=== PATIENT | female | born 1980 | race Caucasian/White ===

== ENCOUNTER 2016-10-05 00:15 | Emergency (ER) | payer OTHER ==
[2016-10-05 00:21] VITALS: RESP 18
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
[2016-10-05 02:31] VITALS: BP 138/83; PULSE 79; TEMP 98.5
== END 2016-10-05 02:31 | disposition home or self-care (01) ==
LOC: EC 00:15
DX: F41.9 Anxiety disorder, unspecified (principal); F17.200 Nicotine dependence, unspecified, uncomplicated
CPT/HCPCS: 99284

== ENCOUNTER → 2018-08-29 | Outpatient (CLI) | payer OTHER ==
[2018-08-29 17:18] LABS: INR 1.1 (<1.2); Prothrombin Time 11.8 sec (9.0-12.0)
[2018-08-29 17:19] LABS: Basophils # (A) 0.1 k/uL (0-0.2); Basophils % (A) 1 %; Eosinophils # (A) 0.1 k/uL (0-0.7); Eosinophils % (A) 2 %; HCT 41.3 % (34.0-46.0); HGB 14.1 gm/dL (11.4-16.0); Lymphocytes # (A) 2.1 k/uL (1.0-4.8); Lymphocytes % (A) 39 %; MCH 30.9 pg (25.0-35.0); MCHC 34.1 g/dL (31.0-37.0); MCV 90.8 fL (80.0-100.0); Mean Platelet Volume 6.6; Monocytes # (A) 0.3 k/uL (0-1.0); Monocytes % (A) 5 %; Neutrophils # (A) 2.8 k/uL (1.3-7.7); Neutrophils % (A) 51 %; Platelet Count 196 k/uL (150-450); RBC 4.55 m/uL (3.80-5.40); RDW 12.5 % (11.5-15.5); WBC 5.5 k/uL (3.8-10.6)
[2018-08-29 17:33] LABS: Albumin 4.3 g/dL (3.5-5.0); Bilirubin, Delta 0.2 mg/dL (0.0-0.2); Bilirubin,Unconjugated 0.4 mg/dL (0.0-1.1); Total Bilirubin 0.6 mg/dL (0.2-1.3); Total Protein 6.8 g/dL (6.3-8.2)
--- NOTE | 2018-08-30 07:02 | US ---
EXAMINATION TYPE: US liver DATE OF EXAM: 08/29/2018 COMPARISON: NONE CLINICAL HISTORY: B18.2 CHR VIRAL HEP C; renal stones EXAM MEASUREMENTS: Liver Length: 15.6 cm Gallbladder Wall: 0.2 cm CBD: 0.6 cm Right Kidney: 11.8 x 5.8 x 4.7 cm Pancreas: wnl Liver: wnl Gallbladder: wnl Evidence for sonographic Duffy's sign: no CBD: wnl, size is upper limits of normal Right Kidney: hyperechoic and shadowing focus (renal calcification) mid pole = 0.6 x 0.4 x 0.2cm. IMPRESSION: 1. Nonobstructing nephrolithiasis right kidney.
[2018-08-30 13:57] LABS: HCV Quant Log 1.86 (<1.08); HCV Quantitative Result 72 IU/mL (<12)
== END | disposition home or self-care (01) ==
LOC: RADUSWWP 15:34
PROVIDERS: ATTEND Internal Medicine Gastroenterology
DX: N20.0 Calculus of kidney (principal); B18.2 Chronic viral hepatitis C
CPT/HCPCS: 36415; 76705; 80076; 85025; 85610; 87522

== ENCOUNTER → 2018-09-19 | Outpatient (CLI) | payer OTHER ==
--- NOTE | 2018-09-19 11:53 | MM ---
Reason for exam: screening (asymptomatic). Baseline mammogram. History: Family history of breast cancer in maternal aunt at age 44. Physical Findings: Nurse did not find any significant physical abnormalities on exam. MG Screening Mammo w CAD Bilateral CC and MLO view(s) were taken. The breast tissue is heterogeneously dense. This may lower the sensitivity of mammography. No suspicious abnormality. No significant new findings when compared with previous films. These results were verbally communicated with the patient and result sheet given to the patient on 09/19/18. ASSESSMENT: Negative, BI-RAD 1 RECOMMENDATION: Routine screening mammogram of both breasts in 1 year.
== END ==
LOC: RADMAMWWP 10:47
PROVIDERS: ATTEND Family Medicine
DX: Z12.31 Encounter for screening mammogram for malignant neoplasm of breast (principal); Z80.3 Family history of malignant neoplasm of breast
CPT/HCPCS: 77067

== ENCOUNTER → 2018-11-05 | Outpatient (CLI) | payer OTHER ==
--- NOTE | 2018-11-05 22:56 | CT ---
EXAMINATION TYPE: CT abdomen pelvis wo con DATE OF EXAM: 11/05/2018 COMPARISON: Ultrasound 08/29/2018 HISTORY: 38-year-old female right flank pain. History of stones. Hepatitis C. CT DLP: 322.8 mGycm. Automated exposure control for dose reduction was used. TECHNIQUE: Contiguous axial scanning of the abdomen and pelvis without IV contrast. Coronal and sagit polina reconstructions performed. FINDINGS: Heart normal size without pericardial effusion. Lung bases clear without pleural effusion. Liver mildly enlarged at 18.1 cm. Otherwise, noncontrast appearance of the liver, gallbladder, adrena l glands, left kidney, 618, and pancreas show no gross abnormality. There is a punctate 3 mm nonobstructive right renal calculus. No hydronephrosis seen on either side. In the pelvis, there is a 3 mm calcification on the right, axial image 117, equivocal for distal uret eral calculus or phlebolith. Additional phleboliths are present on both sides of the pelvis. A phlebo lith is favored. No dilated small bowel, free fluid, or free air. Prominent ingested debris within the stomach. Scattered prominent mesenteric lymph nodes throughout the abdomen measuring up to 7 mm. Probably reac tive/post inflammatory. Normal appendix. Moderate stool burden. No pericolonic inflammatory change. Bladder is urine distended. Uterus is anteverted. Both ovaries are visualized. No abnormal fluid cyndee ection in the pelvis. Bones: Anterior and superior femoral head neck junction osseous excrescences can be seen in the setti ng of femoral acetabular impingement syndrome. IMPRESSION: 1. Nonobstructive 3 mm right renal calculus. 2. A 3 mm calcification in the right seventh and pelvis is equivocal for distal ureteral calculus ve rsus phlebolith. Clinical correlation recommended. The latter is favored. 3. Bony changes at the hips can be seen in the setting of femoral acetabular impingement syndrome. 4. Mild hepatomegaly (18.1 cm).
== END | disposition home or self-care (01) ==
LOC: RADCTMAIN 14:33
PROVIDERS: ATTEND Family Medicine
DX: N20.0 Calculus of kidney (principal); R16.0 Hepatomegaly, not elsewhere classified
CPT/HCPCS: 74176

== ENCOUNTER → 2018-11-05 | Outpatient (CLI) | payer OTHER ==
[2018-11-05 12:48] LABS: Basophils % (A) 1 %; Eosinophils # (A) 0.1 k/uL (0-0.7); Eosinophils % (A) 1 %; HCT 39.5 % (34.0-46.0); HGB 13.4 gm/dL (11.4-16.0); Lymphocytes # (A) 1.5 k/uL (1.0-4.8); Lymphocytes % (A) 23 %; MCHC 33.9 g/dL (31.0-37.0); MCV 88.6 fL (80.0-100.0); Mean Platelet Volume 6.6; Monocytes # (A) 0.3 k/uL (0-1.0); Monocytes % (A) 5 %; Neutrophils # (A) 4.4 k/uL (1.3-7.7); Neutrophils % (A) 69 %; Platelet Count 261 k/uL (150-450); RBC 4.46 m/uL (3.80-5.40); RDW 12.4 % (11.5-15.5); WBC 6.4 k/uL (3.8-10.6)
[2018-11-05 13:01] LABS: INR 1.1 (<1.2); Prothrombin Time 11.5 sec (9.0-12.0)
[2018-11-05 20:00] LABS: Albumin 4.6 g/dL (3.80-4.90); Albumin/Globulin Ratio 2.71 (1.60-3.17); Bilirubin, Conjugated 0.2 mg/dL (0.20-0.40); Bilirubin,Unconjugated 0.4 mg/dL; Globulin 1.7 g/dL (1.6-3.3); Total Bilirubin 0.6 mg/dL (0.2-1.2); Total Protein 6.3 g/dL (6.2-8.2)
[2018-11-06 14:15] LABS: HCV Quant Log <1.08 (<1.08)
== END | disposition home or self-care (01) ==
LOC: LABWHC1 12:10
PROVIDERS: ATTEND Physician Assistant
DX: B18.2 Chronic viral hepatitis C (principal)
CPT/HCPCS: 36415; 80076; 85025; 85610; 87522

== ENCOUNTER → 2019-05-13 | Outpatient (CLI) | payer OTHER ==
[2019-05-13 19:40] LABS: ALT 15 U/L (8-44); AST 17 U/L (13-35); Albumin/Globulin Ratio 2.59 (1.60-3.17); Alkaline Phosphatase 56 U/L (41-126); Bilirubin, Conjugated <0.20 mg/dL (0.20-0.40); Globulin 1.7 g/dL (1.6-3.3); Total Bilirubin 0.3 mg/dL (0.2-1.2); Total Protein 6.1 g/dL (6.2-8.2)
== END | disposition home or self-care (01) ==
LOC: LABWHC1 11:23
DX: B18.2 Chronic viral hepatitis C (principal)
CPT/HCPCS: 36415; 80076; 87522

== ENCOUNTER → 2020-02-17 | Outpatient (CLI) | payer OTHER ==
--- NOTE | 2020-02-17 09:07 | US ---
EXAMINATION TYPE: US pelvic complete DATE OF EXAM: 02/17/2020 COMPARISON: CT 11/05/18 CLINICAL HISTORY: 39-year-old female r10 ABD AND PELVIC PAIN. Lumps in B/L groin TECHNIQUE: Transabdominal sonographic images of the pelvis were acquired. Date of LMP: 02/05/20 FINDINGS: EXAM MEASUREMENTS: Uterus: 8.5 x 4.0 x 4.8 cm Endometrial Stripe: 0.9 cm Right Ovary: 3.5 x 2.7 x 2.2 cm Left Ovary: 2.5 x 1.5 x 3.1 cm 1. Uterus: wnl 2. Endometrium: Within normal limits 3. Right Ovary: Cyst 1.4 x 1.3 x 1.4 cm 4. Left Ovary: wnl 5. Bilateral Adnexa: wnl 6. Posterior cul-de-sac: wnl Multiple lymph nodes seen in Rt groin, largest measuring 2.0 x 0.3 x 2.3 cm IMPRESSION: 1. A 1.4 cm dominant follicle or functional cyst in the right ovary. No pelvic free fluid. Endometria l stripe measuring 9 mm. 2. A few lymph nodes within the right inguinal region, largest measuring 2.0 cm short axis which is m ildly enlarged. Probably reactive/post inflammatory. This should be followed clinically. If any enlar gement is noted, the area can be rescanned.
--- NOTE | 2020-02-17 09:10 | US ---
EXAMINATION TYPE: US abdomen complete DATE OF EXAM: 02/17/2020 COMPARISON: CT 11/05/18 CLINICAL HISTORY: 39-year-old female R10 Abdominal Pelvic Pain. Lumps in B/L groin TECHNIQUE: Multiple sonographic images of the abdomen are obtained. EXAM MEASUREMENTS: Liver Length: 14.3 cm Gallbladder Wall: 0.3 cm CBD: 0.5 cm Spleen: 10.0 cm Right Kidney: 11.5 x 4.6 x 4.8 cm Left Kidney: 11.2 x 4.9 x 4.5 cm Pancreas: wnl. Liver: wnl Gallbladder: No stones seen; junctional fold noted Evidence for sonographic Duffy's sign: No CBD: wnl Spleen: wnl Kidneys: No hydronephrosis. Upper IVC: wnl Abd Aorta: wnl IMPRESSION: Unremarkable sonographic examination of the abdomen.
== END | disposition home or self-care (01) ==
LOC: RADUSWWP 07:05
PROVIDERS: ATTEND Family Medicine
DX: N83.201 Unspecified ovarian cyst, right side (principal); R59.9 Enlarged lymph nodes, unspecified; R10.2 Pelvic and perineal pain
CPT/HCPCS: 76700; 76856

== ENCOUNTER → 2020-05-27 | Outpatient (CLI) | payer OTHER ==
[2020-05-27 11:09] LABS: Basophils % (A) 1 %; Eosinophils # (A) 0.1 k/uL (0-0.7); Eosinophils % (A) 2 %; HCT 41.9 % (34.0-46.0); HGB 14.6 gm/dL (11.4-16.0); Lymphocytes # (A) 1.1 k/uL (1.0-4.8); Lymphocytes % (A) 25 %; MCH 31.6 pg (25.0-35.0); MCHC 34.9 g/dL (31.0-37.0); MCV 90.5 fL (80.0-100.0); Mean Platelet Volume 6.8; Monocytes # (A) 0.3 k/uL (0-1.0); Monocytes % (A) 7 %; Neutrophils # (A) 2.8 k/uL (1.3-7.7); Neutrophils % (A) 64 %; Platelet Count 252 k/uL (150-450); RBC 4.63 m/uL (3.80-5.40); RDW 11.8 % (11.5-15.5); WBC 4.4 k/uL (3.8-10.6)
[2020-05-27 16:54] LABS: % Iron Saturation 52.22 (12.00-45.00); Albumin 4.7 g/dL (3.80-4.90); Albumin/Globulin Ratio 2.94 (1.60-3.17); Bilirubin, Conjugated 0.2 mg/dL (0.20-0.40); Bilirubin,Unconjugated 0.6 mg/dL; Globulin 1.6 g/dL (1.6-3.3); Total Bilirubin 0.8 mg/dL (0.2-1.2); Total Protein 6.3 g/dL (6.2-8.2)
[2020-05-27 17:02] LABS: Ferritin 117.8 ng/mL (10.0-291.0)
[2020-05-28 16:29] LABS: HCV Qualitative Result Not detected (Not detected); HCV Quant Log <1.08 (<1.08); HCV Quantitative Result <12 IU/mL (<12)
== END | disposition home or self-care (01) ==
LOC: LABWHC1 10:12
PROVIDERS: ATTEND Physician Assistant
DX: B18.2 Chronic viral hepatitis C (principal); R53.83 Other fatigue
CPT/HCPCS: 36415; 80076; 82728; 83540; 83550; 85025; 87522

== ENCOUNTER → 2022-02-22 | Outpatient (CLI) | payer OTHER ==
--- NOTE | 2022-02-22 10:53 | MR ---
EXAMINATION TYPE: MR knee LT wo con DATE OF EXAM: 02/22/2022 COMPARISON: None HISTORY: ACUTE MENISCAL TEAR, LEFT KNEE PAIN TECHNIQUE: Multiplanar, multisequence imaging of the left knee is performed without IV contrast. FINDINGS: Artifact is present on the exam, there is motion. MEDIAL MENISCUS: Posterior horn the medial meniscus is diminished in size, irregular in shape, there may be a fragment flipped laterally, multilocular cystic changes present at this level which may repr esent meniscal cyst. LATERAL MENISCUS: Anterior and posterior horns are intact without tear. CRUCIATE LIGAMENTS: Anterior cruciate ligament fibers are not well-defined. Posterior cruciate ligame nt appears intact. COLLATERAL LIGAMENTS: The medial collateral ligament and lateral collateral ligament complex are inta ct and unremarkable. EXTENSOR MECHANISM: Visualized quadriceps and patellar tendons are intact. EFFUSION: Suprapatellar joint effusion is present extending laterally and medially POPLITEAL CYST: No popliteal/bauman cyst. 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 IMPRESSION: Findings suggest a chronic tear the posterior horn the medial meniscus with flipped fragment laterall y as described, possible anterior cruciate ligament tear, osteoarthritis, joint effusion. There is mo tion on the exam.
== END | disposition home or self-care (01) ==
LOC: RADMRIMAIN 09:07
PROVIDERS: ATTEND Family Medicine
DX: S83.241A Other tear of medial meniscus, current injury, right knee, initial encounter (principal)

== ENCOUNTER 2023-11-29 02:37 | Observation (INO) | payer OTHER ==
[2023-11-29] MEDS ORDERED: VANCOMYCIN IV PER PHARMACY 1 EACH MISC MISCELLANE PRN (03:11)
[2023-11-29] MEDS: VANCOMYCIN 1,250 MG in SODIUM CHLORIDE 0.9% 250 ML IVPB ONE (04:14)
[2023-11-29 04:32] LABS: Basophils % (A) 1 %; Eosinophils % (A) 0 %; HCT 37.8 % (34.0-46.0); HGB 12.9 gm/dL (11.4-16.0); Lymphocytes # (A) 1.3 k/uL (1.0-4.8); Lymphocytes % (A) 21 %; MCH 30.5 pg (25.0-35.0); MCHC 34.2 g/dL (31.0-37.0); MCV 89.3 fL (80.0-100.0); Mean Platelet Volume 7.5; Monocytes # (A) 0.5 k/uL (0-1.0); Monocytes % (A) 8 %; Neutrophils # (A) 4.5 k/uL (1.3-7.7); Neutrophils % (A) 69 %; Platelet Count 147 k/uL (150-450); RBC 4.23 m/uL (3.80-5.40); RDW 12.5 % (11.5-15.5); WBC 6.5 k/uL (3.8-10.6)
[2023-11-29] MEDS ORDERED: NALOXONE 0.4 MG/ML 1 ML VIAL IV PRN (05:59)
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
[2023-11-29 06:14] LABS: African American GFR (CKD) >90 (>60 ml/min/1.73 sqM); Blood Urea Nitrogen 19 mg/dL (7-17); Non-African American GFR(CKD) >90 (>60 ml/min/1.73 sqM)
[2023-11-29] MEDS: SODIUM CHLORIDE 0.9% 1,000 ML IV SCH (06:19)
[2023-11-29] MEDS ORDERED: PIPERACILLIN-TAZOBACTAM 3.375 GM in SODIUM CHLORIDE 0.9% 100 ML IVPB SCH (08:00)
--- NOTE | 2023-11-29 09:30 | P.CNOR ---
History of Present Illness - [facility] Consult date: 11/29/23 History of present illness: This is a pleasant 43-year-old female patient who presented to [facility] department after a vegetable washer injury on 11/28/2023. The patient accidentally pressure washed the volar aspect of the base of the left index finger. They have had pain in their left index finger afterwards. The patient states they are ambidextrous. Past Medical History Past Medical History: No Reported History History of Any Multi-Drug Resistant Organisms: None Reported Past Surgical History: Hernia Repair, Orthopedic Surgery Past Psychological History: No Psychological Hx Reported Past Alcohol Use History: None Reported Past Drug Use History: Methamphetamine Medications and Allergies Home Medications Medication Instructions Recorded Confirmed Type Acetaminophen-Codeine 300-30mg 1 each PO Q6H PRN #20 tablet 05/11/15 Rx [Tylenol #3] Ibuprofen [Motrin] 800 mg PO Q8HR PRN #30 tab 05/11/15 Rx Allergies Allergy/AdvReac Type Severity Reaction Status Date / Time No Known Allergies Allergy Verified 11/29/23 02:55 Physical Examination A focused exam was conducted of the left hand at bed side in the emergency dep artment. On inspection there is an entrance wound on the volar aspect of the base of the left index finger. There is no current bleeding. The left index finger has generalized swelling. Their is no warmth or overlying erythema. Gross sensation is intact to all five digits. Median, radial, ulnar, and anterior interosseous nerve function is grossly intact. Patient has full range of motion of the left wrist, left hand, and left fingers. - Wrist & Hand left Finger catching (Trigger): none Symptoms: none Appearance: normal Tenderness with palpation: none Full ROM: wrist: yes Full ROM: fingers: yes ROM: wrist flexion: normal ROM: wrist extension: normal ROM: wrist radial deviation: normal ROM: wrist ulnar deviation: normal ROM: wrist pronation: normal ROM: wrist supination: normal ROM: thumb MP joint: normal ROM: thumb IP joint: normal ROM: index finger MP joint: normal ROM: index finger PIP joint: normal ROM: index finger DIP joint: normal ROM: long finger MP joint: normal ROM: long finger PIP joint: normal ROM: long finger DIP joint: normal ROM: ring finger MP joint: normal ROM: ring finger PIP joint: normal ROM: ring finger DIP joint: normal ROM: small finger MP joint: normal ROM: small finger PIP joint: normal ROM: small finger DIP joint: normal Strength: wrist flexion: 5/5 Strength: wrist extension: 5/5 Strength: wrist radial deviation: 5/5 Strength: wrist ulnar deviation: 5/5 Strength: wrist pronation: 5/5 Strength: wrist supination: 5/5 Strength: derrick car operator: 5/5 Results - Labs Labs: Abnormal Lab Results - Last 24 Hours (Table) 11/29/23 11/29/23 Range/Units 03:54 03:54 Plt Count 147 L (150-450) k/uL BUN 19 H (7-17) mg/dL H & H 11/29/23 Range/Units 03:54 Hgb 12.9 (11.4-16.0) gm/dL Hct 37.8 (34.0-46.0) % Result Diagrams: 11/29/23 03:54 11/29/23 03:54 Assessment and Plan Assessment: Entrance wound to the volar aspect of the base of the index finger. Plan: Patient was evaluated in the emergency department this morning. No signs of infection at time of exam. Based on the patient's history and physical exam findings, nonoperative conservative management is recommended. We will defer decision for prophylactic antibiotic therapy to internal medicine. Patient can be discharged from an orthopedic standpoint pending medical clearance.
[2023-11-29] MEDS: VANCOMYCIN 1,250 MG in SODIUM CHLORIDE 0.9% 250 ML IVPB SCH (12:40)
[2023-11-29] MEDS ORDERED: IBUPROFEN 600 MG TAB PO PRN (12:42)
[2023-11-29] MEDS: HYDROcodone/APAP 5-325MG 1 EACH TAB PO PRN (12:50)
[2023-11-29] MEDS: AMPICILLIN-SULBACTAM 3 GM in SODIUM CHLORIDE 0.9% 100 ML IVPB SCH (18:03)
--- NOTE | 2023-11-29 20:18 | P.CONS ---
History of Present Illness - Reason for Consult Consult date: 11/29/23 Finger infection Requesting physician: Todd Vyas - Chief Complaint Right index finger pain and swelling x 1 day - History of Present Illness Patient is a 43-year-old female with no significant past medical history presenting to [facility] ER concerning for increasing pain and swelling and some redness to the right index finger apparently the patient was cleaning something with the high-pressure water and having accidentally direct to the proximal to her index finger patient noticed to have significant swelling bleeding with pain patient presented to the hospital patient denies having any fever or any chills has been complaining of pain which is mostly throbbing mild to moderate intense without any additional diffuse swelling minimal redness did have some bleeding but no foul-smelling drainage on presentation the hospital the patient was afebrile patient was nontachycardic hypotensive or hypoxic patient did have a white count of 6.5 creatinine 0.54 patient did not have any x-rays done patient was started on vancomycin and Zosyn concerning for possible infection, infectious was consulted for further management of antibiotic therapy Review of Systems Positive point and negatives has been mentioned in the HPI, complete review of systems was performed and all other systems are negative Past Medical History Past Medical History: No Reported History History of Any Multi-Drug Resistant Organisms: None Reported Past Surgical History: Hernia Repair, Orthopedic Surgery Past Psychological History: No Psychological Hx Reported Past Alcohol Use History: None Reported Past Drug Use History: Methamphetamine Medications and Allergies Home Medications Medication Instructions Recorded Confirmed Type Ibuprofen [Motrin] 600 mg PO Q8HR PRN 11/29/23 11/29/23 History Amoxic-Pot Clav 875-125Mg 1 each PO Q12HR 7 Days #14 tab 11/30/23 Rx [Augmentin 875-125] Allergies Allergy/AdvReac Type Severity Reaction Status Date / Time No Known Allergies Allergy Verified 11/29/23 09:29 Physical Exam Vitals: Vital Signs Temp Pulse Resp BP Pulse Ox 11/29/23 12:45 98 F 81 18 109/68 99 11/29/23 07:25 98.1 F 83 18 102/68 100 11/29/23 02:52 98.6 F 81 18 134/87 99 Intake and Output 11/28/23 11/29/23 11/29/23 22:59 06:59 14:59 Other: Weight 79.379 kg GENERAL DESCRIPTION: Middle-aged female lying in bed, no distress. No tachypnea or accessory muscle of respiration use. HEENT: Shows Pallor , no scleral icterus. Oral mucous membrane is dry. NECK: Trachea central, no thyromegaly. LUNGS: Unlabored breathing. Clear to auscultation anteriorly. No wheeze or crackle. HEART: S1, S2, regular rate and rhythm. No loud murmur ABDOMEN: Soft, no tenderness , guarding or rigidity, no organomegaly EXTREMITIES: Right index fingertip did have some swelling minimal redness was noticed no purulent drainage SKIN: No rash, no masses palpable. NEUROLOGICAL: The patient is awake, alert, oriented x3, mood and affect normal. Results CBC & Chem 7: 11/29/23 03:54 11/29/23 03:54 Labs: Abnormal Lab Results - Last 24 Hours (Table) 11/29/23 11/29/23 Range/Units 03:54 03:54 Plt Count 147 L (150-450) k/uL BUN 19 H (7-17) mg/dL Assessment and Plan (1) Finger infection Status: Acute Code(s): L08.9 - LOCAL INFECTION OF THE SKIN AND SUBCUTANEOUS TISSUE, UNSP SNOMED Code(s): 211205689 Plan: 1patient presented to hospital with high pressure water injury to the right index finger with some redness and concern for possible cellulitis likely from gram-positive skin hermelindo 2-discontinue vancomycin and Zosyn to decrease risk of nephrotoxicity 3-we will start the patient on Unasyn and see clinical response We will follow on clinical condition and cultures to further adjust medication if needed Thank you for this consultation we will follow the patient along with you Dictation was produced using [employer] dictation software. please excuse any grammatical, word or spelling errors. Time with Patient: Greater than 30
[2023-11-30 09:07] VITALS: BP 112/78; PULSE 83; RESP 16; TEMP 97.5
[2023-11-30] MEDS ORDERED: VANCOMYCIN TROUGH DUE 1 EACH MISC MISCELLANE ONE (11:00)
[2023-11-30] MEDS ORDERED: AMOXIC-POT CLAV 875-125MG 1 EACH TAB PO SCH (21:00)
== END 2023-11-30 11:55 | disposition home or self-care (01) ==
LOC: EC 02:37 → 6NMEDSUR 06:01 → 1SOBS 15:34
PROVIDERS: ADMIT Family Medicine; ATTEND Family Medicine
DX: S61.200A Unspecified open wound of right index finger without damage to nail, initial encounter (principal); W26.8XXA Contact with other sharp object(s), not elsewhere classified, initial encounter; L08.9 Local infection of the skin and subcutaneous tissue, unspecified; R09.02 Hypoxemia; Z88.1 Allergy status to other antibiotic agents
CPT/HCPCS: 36415; 82565; 84520; 85025; 86140; G0378 ×2; J3370; J0295 ×2; 96361; 96365; 96366; 96367; 99285